=== PATIENT | female | born 1995 | race Caucasian/White ===

== ENCOUNTER 2025-03-14 14:21 | Emergency (ER) | payer MEDICAID ==
[~2025-03-14] VITALS: Ht 167.6 cm; Wt 76.0 kg
[2025-03-14 14:29] VITALS: BP 117/71; PULSE 94; RESP 14; TEMP 37; O2SAT 98
== END 2025-03-14 19:07 | disposition left against medical advice (07) ==
LOC: ER 14:31
DX: R51.9 Headache, unspecified (principal); Z53.21 Procedure and treatment not carried out due to patient leaving prior to being seen by health care provider